=== PATIENT | male | born 1955 | race Caucasian/White ===

== ENCOUNTER 2021-01-10 11:45 | Emergency (ER) | payer BC ==
[2021-01-10 12:32] LABS: ANION GAP 14.2 mmol/L (5-15); CHLORIDE,CL 102 mmol/L (98-107); SODIUM,NA 142 mmol/L (136-145)
--- NOTE | 2021-01-10 12:45 | EDM.PDOC ---
ED HPI GENERAL MEDICAL PROBLEM - General Chief Complaint: General Time Seen by Provider: 01/10/21 12:13 Source of Information: Reports: Patient, EMS History Limitations: Reports: No Limitations - History of Present Illness INITIAL COMMENTS - FREE TEXT/NARRATIVE: Patient presents with cough, chills, weakness, hypoxemia. He has been mostly resting the last couple days due to weakness, cough and seasonal allergies. 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 He says he is allergic to many of the grain dusts (especially molds); he gets like this every harvest season due to his allergies, but he usually doesn't have to come to hospital or use prednisone. He is on day 6 of a 7-day course of prednisone from a refill after a course 3 weeks ago. Today he got up to take a shower and was feeling very weak. He was sitting in the shower but slipped to the floor he was so weak. He got quite chilled there and then sitting on the bathroom floor before EMS picked him up. EMS tells me his hands were very pale and they immediately put him on 10 liters O2. In the ambulance a couple minutes later sats were 85% but hands were still pale and cold. Patient tells me he doesn't remember ever having pneumonia. Not aware of any covid exposure. He says he has had the cough since October due to allergies, but has been worse the last few days. - Related Data Allergies Allergy/AdvReac Type Severity Reaction Status Date / Time amoxicillin Allergy Cannot Verified 01/10/21 12:07 Remember sulfamethoxazole Allergy Cannot Verified 01/10/21 12:07 [From Bactrim] Remember trimethoprim [From Bactrim] Allergy Cannot Verified 01/10/21 12:07 Remember Home Meds: Home Meds Fluticasone Propionate [Flonase Allergy Relief] 1 spray NASBOTH DAILY PRN 01/10/21 [History] Fluticasone Propionate [Flovent HFA 110 MCG] 1 puff INH BID 01/10/21 [History] Montelukast [Singulair] 10 mg PO DAILY 01/10/21 [History] predniSONE [Prednisone] 10 mg PO ASDIRECTED 01/10/21 [History] ED ROS GENERAL - Review of Systems Review Of Systems: See Below Constitutional: Reports: Chills, Malaise, Weakness, Fatigue. Denies: Fever HEENT: Denies: Ear Pain, Throat Pain, Vision Change Respiratory: Reports: Cough. Denies: Shortness of Breath Cardiovascular: Denies: Chest Pain, Lightheadedness, Syncope GI/Abdominal: Denies: Abdominal Pain, Diarrhea, Vomiting : Denies: Dysuria, Flank Pain Musculoskeletal: Denies: Neck Pain, Shoulder Pain, Arm Pain, Back Pain, Hand Pain Skin: Reports: Pallor, Diaphoresis. Denies: Cyanosis, Jaundice Neurological: Denies: Confusion, Dizziness, Headache, Seizure, Syncope, Trouble Speaking, Difficulty Walking Psychiatric: Denies: Agitation, Anxiety, Confusion ED EXAM, GENERAL - Physical Exam Exam: See Below Exam Limited By: No Limitations General Appearance: Alert, WD/WN, No Apparent Distress Eye Exam: Bilateral Eye: EOMI, Normal Inspection, PERRL Ears: Normal External Exam, Normal Canal, Hearing Grossly Normal, Normal TMs Nose: Normal Inspection, No Blood Throat/Mouth: Normal Inspection, Normal Lips, Normal Teeth, Normal Gums, Normal Oropharynx, Normal Voice, No Airway Compromise Head: Atraumatic, Normocephalic Neck: Normal Inspection, Supple, Non-Tender, Full Range of Motion Respiratory/Chest: No Respiratory Distress, Lungs Clear, Normal Breath Sounds (a couple times I think I heard faint crackles in right base but couldn't hear after repeated deep breaths), No Accessory Muscle Use. No: Rhonchi, Wheezing, Stridor Cardiovascular: Normal Peripheral Pulses, Regular Rate, Rhythm, No Edema, No Murmur Peripheral Pulses: 2+: Dorsalis Pedis (L), Dorsalis Pedis (R) GI/Abdominal: Normal Bowel Sounds, Soft, Non-Tender, No Organomegaly, No Distention Back Exam: Normal Inspection, Full Range of Motion. No: CVA Tenderness (L), CVA Tenderness (R) Extremities: Normal Inspection, Normal Range of Motion, Non-Tender, No Pedal Edema, Normal Capillary Refill Neurological: Alert, Oriented, Normal Cognition, No Motor/Sensory Deficits Psychiatric: Normal Affect, Normal Mood Skin Exam: Warm, Dry, Intact, Normal Color, No Rash Course - Vital Signs Last Recorded V/S: Last Vital Signs Temp 98.3 F 01/10/21 11:50 Pulse 85 01/10/21 16:00 Resp 15 01/10/21 16:00 BP 121/81 01/10/21 16:00 Pulse Ox 98 01/10/21 16:00 - Orders/Labs/Meds Orders: Active Orders 24 hr Category Date Time Status Vital Signs [RC] Q15M Care 01/10/21 14:41 Active CULTURE BLOOD [BC] Stat Lab 01/10/21 12:00 Received CULTURE BLOOD [BC] Stat Lab 01/10/21 13:30 Received EPINEPHrine [EPINEPHrine 1:10,000] Med 01/10/21 14:40 Active 0.3 mg IM ASDIRECTED PRN Famotidine [Pepcid] Med 01/10/21 14:40 Active 20 mg IVPUSH ASDIRECTED PRN Sodium Chloride 0.9% [Saline Flush] Med 01/10/21 14:45 Active 30 ml FLUSH ASDIRECTED diphenhydrAMINE [Benadryl] Med 01/10/21 14:40 Active 50 mg IVPUSH ASDIRECTED PRN methylPREDNISolone Sod Succ [Solu-MEDROL] Med 01/10/21 14:40 Active 125 mg IVPUSH ASDIRECTED PRN Blood Culture x2 Reflex Set [OM.PC] Stat Oth 01/10/21 13:31 Ordered Medication Orders Diphenhydramine HCl (Diphenhydramine 50 Mg/Ml Sdv) 50 mg IVPUSH ASDIRECTED PRN PRN Reason: hypersensitivity reaction Epinephrine HCl (Epinephrine 1:10,000 1 Mg/10 Ml Syringe) 0.3 mg IM ASDIRECTED PRN PRN Reason: hypersensitivity reaction Famotidine (Famotidine 20 Mg/2 Ml Sdv) 20 mg IVPUSH ASDIRECTED PRN PRN Reason: hypersensitivity reaction Methylprednisolone Sodium Succinate (Methylprednisolone Sodium Succinate 125 Mg/2 Ml Sdv) 125 mg IVPUSH ASDIRECTED PRN PRN Reason: hypersensitivity reaction Sodium Chloride (Sodium Chloride 0.9% 10 Ml Syringe) 30 ml FLUSH ASDIRECTED FELISA Labs: Laboratory Tests 01/10/21 01/10/21 01/10/21 Range/Units 12:08 12:08 12:08 WBC 4.87 L (5.00-10.00) 10^3/uL RBC 5.22 (4.50-6.00) 10^6/uL Hgb 16.2 (13.0-17.0) g/dL Hct 47.2 (40.0-52.0) % MCV 90.4 (82.0-92.0) fL MCH 31.0 (27.0-31.0) pg MCHC 34.3 (32.0-36.0) g/dL RDW 12.4 (11.5-14.5) % Plt Count 54 L (150-400) 10^3/uL MPV 9.8 (7.4-10.4) fL Add Manual Diff Yes Neutrophils % (Manual) 65 (50-70) % Band Neutrophils % Not Reportable Lymphocytes % (Manual) 20 (20-40) % Monocytes % (Manual) 6 (2-8) % Eosinophils % (Manual) 9 H (1-3) % Platelet Estimate Decreased RBC Morph Comment Compliance Reviewer Sodium 142 (136-145) mmol/L Potassium 3.7 (3.5-5.1) mmol/L Chloride 102 (98-107) mmol/L Carbon Dioxide 29.5 (21.0-32.0) mmol/L Anion Gap 14.2 (5-15) mmol/L BUN 13 (7-18) mg/dL Creatinine 1.11 (0.51-1.17) mg/dL Est Cr Clr Drug Dosing 64.70 mL/min Estimated GFR (MDRD) > 60 mL/min Glucose 177 H (70-140) mg/dL Lactic Acid (0.4-2.0) mmol/L Calcium 8.1 L (8.7-10.3) mg/dL C-Reactive Protein < 0.4 (0.0-0.9) mg/dL Influenza Type A RNA Negative (NEGATIVE) Influenza Type B RNA Negative (NEGATIVE) SARS-CoV-2 RNA (BART) Positive H (NEGATIVE) 01/10/21 Range/Units 12:08 WBC (5.00-10.00) 10^3/uL RBC (4.50-6.00) 10^6/uL Hgb (13.0-17.0) g/dL Hct (40.0-52.0) % MCV (82.0-92.0) fL MCH (27.0-31.0) pg MCHC (32.0-36.0) g/dL RDW (11.5-14.5) % Plt Count (150-400) 10^3/uL MPV (7.4-10.4) fL Add Manual Diff Neutrophils % (Manual) (50-70) % Band Neutrophils % Lymphocytes % (Manual) (20-40) % Monocytes % (Manual) (2-8) % Eosinophils % (Manual) (1-3) % Platelet Estimate RBC Morph Comment Sodium (136-145) mmol/L Potassium (3.5-5.1) mmol/L Chloride (98-107) mmol/L Carbon Dioxide (21.0-32.0) mmol/L Anion Gap (5-15) mmol/L BUN (7-18) mg/dL Creatinine (0.51-1.17) mg/dL Est Cr Clr Drug Dosing mL/min Estimated GFR (MDRD) mL/min Glucose (70-140) mg/dL Lactic Acid 3.9 H (0.4-2.0) mmol/L Calcium (8.7-10.3) mg/dL C-Reactive Protein (0.0-0.9) mg/dL Influenza Type A RNA (NEGATIVE) Influenza Type B RNA (NEGATIVE) SARS-CoV-2 RNA (BART) (NEGATIVE) Meds: Medications Generic Name Dose Route Start Last Admin Trade Name Freq PRN Reason Stop Dose Admin Diphenhydramine HCl 50 mg 01/10/21 14:40 Diphenhydramine 50 Mg/Ml Sdv IVPUSH ASDIRECTED PRN hypersensitivity reaction Epinephrine HCl 0.3 mg 01/10/21 14:40 Epinephrine 1:10,000 1 Mg/10 Ml Syringe IM ASDIRECTED PRN hypersensitivity reaction Famotidine 20 mg 01/10/21 14:40 Famotidine 20 Mg/2 Ml Sdv IVPUSH ASDIRECTED PRN hypersensitivity reaction Methylprednisolone Sodium Succinate 125 mg 01/10/21 14:40 Methylprednisolone Sodium Succinate 125 Mg/2 Ml Sdv IVPUSH ASDIRECTED PRN hypersensitivity reaction Sodium Chloride 30 ml 01/10/21 14:45 Sodium Chloride 0.9% 10 Ml Syringe FLUSH ASDIRECTED FELISA Discontinued Medications Generic Name Dose Route Start Last Admin Trade Name Freq PRN Reason Stop Dose Admin Acetaminophen 1,000 mg 01/10/21 17:30 Acetaminophen 500 Mg Tab PO 01/10/21 17:31 ONETIME ONE Sodium Chloride 1,000 mls @ 999 mls/hr 01/10/21 12:47 01/10/21 13:09 Normal Saline IV 01/10/21 13:47 999 mls/hr .BOLUS ONE Administration Bamlanivimab 700 mg/ 310 mls @ 310 mls/hr 01/10/21 14:40 01/10/21 15:22 Etesevimab 1,400 mg/ Sodium IV 01/10/21 15:39 310 mls/hr Chloride ONETIME ONE Administration - Re-Assessments/Exams Free Text/Narrative Re-Assessment/Exam: 01/10/21 12:51 He has improved significantly since EMS first saw him. Waiting on CXR and labs. Departure - Departure Time of Disposition: 17:47 Disposition: Home, Self-Care 01 Condition: Good Clinical Impression: COVID-19, General weakness - Discharge Information Instructions: COVID-19 Frequently Asked Questions, COVID-19: What to Do If You Are Sick- [facility] (05/14/2020) Referrals: Yared Arteaga [employer] [Primary Care Provider] - Forms: ED Department Discharge Additional Instructions: Drink 8 cups of water daily. Go home and rest. You will need to quarantine until the [facility] department clears you. Call your PCP for appointment or telehealth visit if any problems or persisting symptoms. If worsening, recheck in clinic or ER as needed. Sepsis Event Note (ED) - Evaluation Sepsis Screening Result: No Definite Risk - Focused Exam Vital Signs: Vital Signs Temp Pulse Resp BP Pulse Ox 01/10/21 16:00 85 15 121/81 98 01/10/21 15:45 86 21 H 125/82 95 01/10/21 15:30 91 16 117/76 94 L 01/10/21 15:22 94 12 119/78 94 L 01/10/21 12:45 94 20 113/73 99 01/10/21 12:30 92 14 104/69 91 L 01/10/21 12:15 87 19 110/74 96 01/10/21 11:50 98.3 F 86 15 125/81 100 - My Orders Last 24 Hours: My Active Orders 01/10/21 12:00 CULTURE BLOOD [BC] Stat 01/10/21 13:30 CULTURE BLOOD [BC] Stat 01/10/21 13:31 Blood Culture x2 Reflex Set [OM.PC] Stat 01/10/21 14:40 EPINEPHrine [EPINEPHrine 1:10,000] 0.3 mg IM ASDIRECTED PRN Famotidine [Pepcid] 20 mg IVPUSH ASDIRECTED PRN diphenhydrAMINE [Benadryl] 50 mg IVPUSH ASDIRECTED PRN methylPREDNISolone Sod Succ [Solu-MEDROL] 125 mg IVPUSH ASDIRECTED PRN 01/10/21 14:41 Vital Signs [RC] Q15M 01/10/21 14:45 Sodium Chloride 0.9% [Saline Flush] 30 ml FLUSH ASDIRECTED - Assessment/Plan Last 24 Hours: My Active Orders 01/10/21 12:00 CULTURE BLOOD [BC] Stat 01/10/21 13:30 CULTURE BLOOD [BC] Stat 01/10/21 13:31 Blood Culture x2 Reflex Set [OM.PC] Stat 01/10/21 14:40 EPINEPHrine [EPINEPHrine 1:10,000] 0.3 mg IM ASDIRECTED PRN Famotidine [Pepcid] 20 mg IVPUSH ASDIRECTED PRN diphenhydrAMINE [Benadryl] 50 mg IVPUSH ASDIRECTED PRN methylPREDNISolone Sod Succ [Solu-MEDROL] 125 mg IVPUSH ASDIRECTED PRN 01/10/21 14:41 Vital Signs [RC] Q15M 01/10/21 14:45 Sodium Chloride 0.9% [Saline Flush] 30 ml FLUSH ASDIRECTED
[2021-01-10] MEDS ORDERED: Sodium Chloride 0.9% 1,000 ML IV ONE (12:47)
[2021-01-10 13:07] LABS: CORONAVIRUS COVID-19 NAA POSITIVE (NEGATIVE)
--- NOTE | 2021-01-10 13:35 | CR ---
[id number] RAD/RAD Chest PA or AP 1V EXAM: SINGLE VIEW CHEST. INDICATION: COUGH COMPARISON: CORRELATION IS MADE WITH JUNE 23, 2015 FINDINGS: There is minimal scar at the right lung base There is no pneumonia or edema otherwise The cardiomediastinal contour is stable IMPRESSION: STABLE CHEST Frank Yin MD 01/10/21 1996 Thank you for allowing us to participate in the care of your patient.
[2021-01-10] MEDS ORDERED: methylPREDNISolone Sodium Succinate 125 MG/2 ML SDV IVPUSH PRN (14:40)
[2021-01-10] MEDS ORDERED: Famotidine 20 MG/2 ML SDV IVPUSH PRN (14:40)
[2021-01-10] MEDS ORDERED: diphenhydrAMINE 50 MG/ML SDV IVPUSH PRN (14:40)
[2021-01-10] MEDS ORDERED: EPINEPHrine 1:10,000 1 MG/10 ML Syringe IM PRN (14:40)
[2021-01-10] MEDS ORDERED: Sodium Chloride 0.9% 10 ML Syringe FLUSH SCH (14:45)
[2021-01-10] MEDS ORDERED: Acetaminophen 500 MG Tab PO ONE (17:30)
== END 2021-01-10 17:55 | disposition home or self-care (01) ==
LOC: KA.ED 11:45
DX: U07.1 COVID-19 (principal); R53.1 Weakness; Z88.0 Allergy status to penicillin; Z88.2 Allergy status to sulfonamides; Z88.1 Allergy status to other antibiotic agents
CPT/HCPCS: 0240U; 36415; 71045; 80048; 83605; 85025; 86140; 87040; 99285-25; A9270-GY; J7030; J7050; M0245; Q0245